=== PATIENT | female | born 1955 | race Hispanic/Latino ===

== ENCOUNTER 2019-02-13 05:35 | Day surgery (SDC) | payer OTHER ==
[~2019-02-13] VITALS: Ht 157.5 cm; Wt 82.1 kg
[2019-02-13 06:00] VITALS: BP 146/75
[2019-02-13] MEDS ORDERED: ATOR10TA69 PO (06:05)
[2019-02-13] MEDS ORDERED: LISI10TA7 PO (06:05)
[2019-02-13 06:21] LABS: EOSINOPHILS % (AUTO) 1.4 % (0.0-8.0); HEMATOCRIT 41.6 % (36-48); MEAN CORPUSCULAR HGB CONC 33.9 g/dL (32.0-36.0); MEAN CORPUSCULAR VOLUME 88.4 fL (79-99); MONOCYTES % (AUTO) 7.4 % (3.0-13.0); NEUTROPHILS % (AUTO) 62.2 % (40.0-77.0); PLATELET COUNT (AUTO) 124 K/uL (130-400); RED CELL DISTRIBUTION WIDTH 13.5 % (11.0-15.5); WHITE BLOOD COUNT (AUTO) 9.2 K/uL (4.8-10.8)
[2019-02-13] MEDS ORDERED: SODIUM CHLORIDE 0.9% 1000ML 1,000 ML IV ONE (06:29)
[2019-02-13 06:31] LABS: INR 0.97 (0.85-1.15)
[2019-02-13] MEDS ORDERED: PROPOFOL 10 MG/ML 20ML VIAL IV ONE ×2 (07:29→07:53)
[2019-02-13 07:57] VITALS: BP 108/58
[2019-02-13 08:02] VITALS: BP 115/65
[2019-02-13 08:07] VITALS: BP 127/67
[2019-02-13 08:15] VITALS: BP 122/66
== END 2019-02-13 08:20 | disposition home or self-care (01) ==
LOC: DAH 05:35 → ENDO 05:35
PROVIDERS: ATTEND Internal Medicine Gastroenterology
DX: C20 Malignant neoplasm of rectum (principal); K57.30 Diverticulosis of large intestine without perforation or abscess without bleeding; E78.5 Hyperlipidemia, unspecified; K64.9 Unspecified hemorrhoids; E66.01 Morbid (severe) obesity due to excess calories; Z86.010 Personal history of colon polyps; Z90.49 Acquired absence of other specified parts of digestive tract; Z90.710 Acquired absence of both cervix and uterus
CPT/HCPCS: 36415; 45335; 45338; 45341; 85025; 85610; 88305; A4215; A4221; A4222; A4223; A4606; A4615; A4663; J2704 ×2; J7030